=== PATIENT | female | born 1975 | race Hispanic/Latino ===

== ENCOUNTER 2021-01-15 14:22 | Emergency (ER) | payer BC, OTHER ==
[2021-01-15] MEDS ORDERED: LORAZEPAM 1 MG TABLET ONE (14:36)
== END 2021-01-15 15:12 | disposition home or self-care (01) ==
LOC: EDH 14:22
DX: F41.9 Anxiety disorder, unspecified (principal); E11.9 Type 2 diabetes mellitus without complications; I10 Essential (primary) hypertension

== ENCOUNTER → 2023-08-07 | Outpatient (CLI) | payer BC | END | disposition home or self-care (01) | LOC: RAH 09:55 | PROVIDERS: ATTEND Family Medicine | DX: Z12.31 Encounter for screening mammogram for malignant neoplasm of breast (principal) | CPT/HCPCS: 77067 ==